=== PATIENT | female | born 1985 | race Caucasian/White ===

== ENCOUNTER 2024-11-19 10:59 | Outpatient (CLI) | payer BC, SELFPAY ==
--- NOTE | 2024-11-19 11:15 | CRLHL7_ITS ---
For Patients: As a result of the Century Cures Act, medical imaging exams and procedure reports are released immediately into your electronic medical record. You may view this report before your referring provider. If you have questions, please contact your health care provider. INDICATION: Menorrhagia TECHNIQUE: Ultrasound pelvis transabdominal and transvaginal for better assessment or to better visualize the endometrium. Real-time sonographic images with spectral and color Doppler imaging of the ovaries were obtained. COMPARISON: None. FINDINGS: Uterus: 10.1 x 5.9 x 6.6 cm. There is a 2.2 x 2.4 x 2.6 centimeter submucosal fibroid, predominantly intracavitary. Endometrium: Transvaginal imaging was performed to better evaluate the endometrium. Endometrial thickness could not be evaluated due to intracavitary fibroid. Right ovary 3 x 2.1 x 3 centimeters. Left ovary 2.5 x 1.4 x 1.7 centimeters. No ovarian or adnexal masses. Normal arterial and venous blood flow is demonstrated in both ovaries. Cul-de-sac: No significant free fluid. IMPRESSION: There is a 2.2 x 2.4 x 2.6 centimeter submucosal fibroid, predominantly intracavitary (FIGO 1). Dictated by Gala Heaton MD @ 11/19/2024 4:32:05 PM (Electronically Signed)
== END 2024-11-19 11:00 | disposition home or self-care (01) ==
LOC: US 11:00
PROVIDERS: Visit Provider Obstetrics & Gynecology
DX: N92.0 Excessive and frequent menstruation with regular cycle (principal); D25.0 Submucous leiomyoma of uterus
CPT/HCPCS: 76830; 76856

== ENCOUNTER 2025-03-12 14:42 | Inpatient (IN) | payer BC, SELFPAY ==
[2025-03-12] VITALS (22 sets, daily range): BP systolic 107–147; BP diastolic 60–93; PULSE 67–98; RESP 12–16; TEMP 35.8–37.3; O2SAT 90–100; BMI 35.8
--- NOTE | 2025-03-12 07:51 | W.PM.H&PU ---
History & Physical Update History & Physical Update H&P Reviewed and patient assessed: No changes noted
[2025-03-12] MEDS: SODIUM CHLORIDE 0.9 % (FLUSH) 10 ML SYRINGE IVF ×2 (08:25→23:01)
[2025-03-12] MEDS: LACTATED RINGERS 1000 ML 1,000 ML 100 ML IV ×2 (08:25→12:37)
[2025-03-12 08:35] LABS: Hemoglobin* 11.7 gm/dL (12.0-16.0)
[2025-03-12 08:37] LABS: Ur HCG Qualitative* Negative (Negative)
--- NOTE | 2025-03-12 08:54 | W.PM.H&PU_ITS ---
History & Physical Update History & Physical Update H&P Reviewed and patient assessed: No changes noted H&P Updates: Ms. Wolfe is seen in pre-op prior to planned total laparoscopic hysterectomy, bilateral salpingectomy, diagnostic cystoscopy. No interval change to her health history or questions today. We again reviewed the risks, benefits and alternatives to the planned procedure. Explained that she is at increased risk of conversion to an open procedure given her 3 prior , and potentially for cystotomy if bladder flap is challenging to develop. Explained how her hospitalization/recovery could be different if MILAD is required. All questions answered. Written consent was re- signed. Post-procedure restrictions and expectations reviewed. Pre-op labs reviewed and are within normal limits (Cr pending). Ancef as perioperative antibiotics indicated.
[2025-03-12] MEDS: SCOPOLAMINE 1 MG/3 DAY PATCH 1 PATCH TRANSDERMA (08:55)
[2025-03-12] MEDS: ACETAMINOPHEN 500 MG TABLET 1000 MG PO (08:55)
[2025-03-12] MEDS: PHENAZOPYRIDINE HCL 200 MG TABLET PO (08:55)
[2025-03-12] MEDS: GABAPENTIN 600 MG TABLET PO (08:55)
[2025-03-12 08:56] LABS: Creatinine* 1.0 mg/dL (0.5-1.5); Est. Creatinine Clearance* 59.15; Estimated Glomerular Filt Rate 73 ml/min
[2025-03-12] MEDS: CEFAZOLIN 2 GM INJ IVP (09:12)
[2025-03-12] MEDS: BUPIVACAINE 0.25% 30 ML INJECTION (09:39)
--- NOTE | 2025-03-12 10:39 | SUR.OPER ---
RN notified family at 10:05 that we could not proceed with doing laparoscopic and that we had to open.
--- NOTE | 2025-03-12 11:00 | SUR.OPER ---
Hao STROUD requests a general surgeon at 10:15 to come to OR 4 to take a look at the adhesions of patients abdomen
--- NOTE | 2025-03-12 11:41 | P.ANES_ITS ---
Anesthesia Charges Start Date/Time Anesthesia Start Date: 03/12/25 Anesthesia Start Time: 08:59 Stop Date/Time Anesthesia Stop Date: 03/12/25 Anesthesia Stop Time: 13:45 Coding CPT Codes CPT Codes: ANESTH SURG LOWER ABDOMEN - 30274 ([id number]) P2 - PATIENT W/MILD SYST DISEASE, QK - EQUIPMENT WORKER 2-4 CNCRNT ANES PROC, QX - WEDDING COORDINATOR SVC W/ MD MED DIRECTION
--- NOTE | 2025-03-12 11:41 | W.PM.NB ---
Nerve Block Nerve Block Time Seen by Provider: 09:10 Date Seen: 03/12/25 Type of block requested by surgeon for post-operative analgesia: TAP Side: bilateral Time out performed: Yes Verification of patient name: Yes Verification of date of : Yes Site marking: site marked Name of person performing procedure: Mauro Continuous monitoring Was continuous monitoring of O2 sat, B/P, color television console monitor, recorded every 15 minutes?: Yes Procedure Checklist: sterile prep, needles and gloves Ultrasound guided. Images saved: Yes Medications given in 5ml increments after negative aspiration: Marcaine %: 0.25 mL: 30 Needle gauge: 20 and Exparel mL: 10 Patient tolerated procedure well: Yes Additional comments: Needle noted between internal oblique and transversus abdominus. Local spread visualized Block Charges Block Charge (with Pro Fee): TAP Bilateral Use of Ultrasound Machine for Block: Yes- US Guidance/pain block
--- NOTE | 2025-03-12 11:41 | W.ANESCHARGE ---
Anesthesia Charges Start Date/Time Anesthesia Start Date: 03/12/25 Anesthesia Start Time: 08:59 Stop Date/Time Anesthesia Stop Date: 03/12/25 Anesthesia Stop Time: 13:45 Coding CPT Codes CPT Codes: ANESTH SURG LOWER ABDOMEN - 34606 ([id number]) P2 - PATIENT W/MILD SYST DISEASE, QK - DENTAL SCHEDULING COORDINATOR 2-4 CNCRNT ANES PROC, QX - SENIOR MICROSTRATEGY DEVELOPER SVC W/ MD MED DIRECTION
--- NOTE | 2025-03-12 11:45 | PM.GSPRC ---
Operative Note Date of procedure: 03/12/25 Type of Procedure: 1. Intraoperative consultation for Lysis of adhesions. Indications: Intraoperative consultation Procedure Description: I was contacted by OBGYN surgeons regarding patient's adhesions to uterus. Patient was undergoing laparoscopic converted to open hysterectomy. When I entered the room, the Pfannenstiel incision was already made and abdomen was entered. I was able to visualize the uterus and on the left anterior side of the abdomen omentum was adherent to the uterus. When I scrubbed into the case, omental adhesions were lysed with cautery. Hemostasis was achieved with cautery and with Vicryl ties. No small intestine was seen adherent to the uterus. The left broad ligament was visualized and omentum adherent to the broad ligament and the left side of the uterus and cervix was mobilized with cautery. Anteriorly peritoneal adhesions and omental adhesions were seen to the anterior uterus. Those were also lysed with cautery. Posteriorly the uterus and cervix were free and the rectum was packed away from the field of dissection. This dissection allowed further mobilization of the uterus and to be able to proceed with hysterectomy. At this time I helped with placement of Caleb retractor, and OBGYN surgeons continued with the case. Findings: Omental adhesions to the left and anterior uterus and cervix. Anesthesia: GETA Surgeon: Annette Betancourt MD Estimated blood loss (mL): 2 Condition: stable Disposition: no change
--- NOTE | 2025-03-12 12:21 | SUR.OPER ---
fntkvk=191 g
--- NOTE | 2025-03-12 12:40 | SUR.OPER ---
RN updated family at 12:39 about patients procedure. RN told family surgeon will be out to talk to them after surgery.
--- NOTE | 2025-03-12 13:44 | P.ANES_ITS ---
Anesthesia Charges Start Date/Time Anesthesia Start Date: 03/12/25 Anesthesia Start Time: 08:59 Stop Date/Time Anesthesia Stop Date: 03/12/25 Anesthesia Stop Time: 13:45 Coding CPT Codes CPT Codes: ANESTH SURG LOWER ABDOMEN - 95912 ([id number]) P2 - PATIENT W/MILD SYST DISEASE, QK - BRANCH OPERATIONS MANAGER 2-4 CNCRNT ANES PROC, QX - OPTIONS TRADER SVC W/ MD MED DIRECTION
--- NOTE | 2025-03-12 13:44 | W.ANESCHARGE ---
Anesthesia Charges Start Date/Time Anesthesia Start Date: 03/12/25 Anesthesia Start Time: 08:59 Stop Date/Time Anesthesia Stop Date: 03/12/25 Anesthesia Stop Time: 13:45 Coding CPT Codes CPT Codes: ANESTH SURG LOWER ABDOMEN - 27985 ([id number]) P2 - PATIENT W/MILD SYST DISEASE, QK - SECURITY INTERN 2-4 CNCRNT ANES PROC, QX - SODA FOUNTAIN MANAGER SVC W/ MD MED DIRECTION
--- NOTE | 2025-03-12 14:10 | P.GYNPRC_ITS ---
Procedure Note Time Seen by Provider: 13:30 Date of procedure: 03/12/25 Will [facility] bill your pro fee for this procedure?: Yes Pre-op diagnosis: Abnormal uterine bleeding Fibroid uterus History of delivery x3 Procedure: Diagnostic laparoscopy Total abdominal hysterectomy Bilateral salpingectomy Extensive lysis of adhesions Cystotomy repair Cystoscopy Anesthesia: GETA Complications: 1 cm cystotomy, repaired Surgeon: Stacy Bui MD Brazing Machine Operator: Shivani Camargo Estimated blood loss (mL): 300 IV fluids (mL): 1,900 Urine Output (mL): 350 Pathology: specimen obtained, sent to pathology Condition: stable Disposition: floor Findings: Unremarkable external genital exam and speculum exam Extensive intra-abdominal adhesions of the omentum to anterior abdominal wall from just below the umbilicus down the mid and left anterior abdominal wall, requiring conversion to abdominal procedure Unremarkable upper abdominal survey Slightly enlarged uterus, normal bilateral fallopian tubes and ovaries Omental adhesion to the left anterior uterus and bladder flap Adhesive disease across the vesicouterine reflection Procedure Description: Patient was taken to the operating room with IV running. She received cefazolin in preoperative prophylaxis. She was positioned in dorsal lithotomy position with her legs fully supported in Yellofin stirrups. General anesthesia was administered. She was prepped and draped in the usual sterile fashion. Albright catheter was inserted. Pelvic exam under anesthesia was performed for the above-noted findings. Speculum was inserted. Cervix visualized and grasped along its anterior lip with a single-tooth tenaculum. Cervix was dilated with Hegar dilators to accommodate the VCare uterine manipulator. A medium size colpotomizer cup was selected. The tip of the uterine manipulator was inserted through the cervix into the uterine cavity and the balloon was inflated. The speculum was removed. The colpotomy cup was advanced, surrounding the cervix, and the proximal occlud er was moved up along the shaft of the VCare and fixed in place. Albright catheter was placed. Patient's legs were then placed in neutral position. Attention was turned to patient's abdomen. Infraumbilical area was infiltrated with a small amount of Marcaine. A 12 mm infraumbilical incision was made with a scalpel and carried down to the underlying layer of fascia with the hemostat. The fascia was grasped with Rosalio clamps and elevated, fascial incision made with scalpel. A curved hemostat was utilized to enter peritoneum and gently stretch fascial incision. A gloved finger was introduced into the peritoneal cavity, where slightly inferior to site of entry there was noted be dense omental adhesions to the anterior abdominal wall. Bonds trocar was introduced to the peritoneal cavity, balloon inflated. 5mm camera inserted and high flow initiated. Pneumoperitoneum was achieved, where careful attention was paid below site of entry - no injury or bleeding noted. Upper abdominal survey was completed, revealing normal anatomy. Patient was put into Trendelenburg, where extensive omental adhesions was noted down the entirety of the anterior abdominal wall and toward the left pelvis. VCare was utilized to antevert the uterus, were despite this we could not visualize the pelvic structures. Decision was made to terminate the attempt at total laparoscopic surgery, due to extensive adhesive disease. Pneumoperitoneum was taken down, trocar removed. The fascia was grasped with Rosalio clamps and elevated, closed with a [id number] with 0 vicryl. Subcutaneous tissue was made hemostatic with electrocautery. Skin was closed in a running fashion with 3-0 Monocryl. A Pfannenstiel incision was made 2cm above the pubic symphysis with a scalpel. Her former C/S scar was not utilized as it was noted to overlie the pubic symphysis itself. Dissection was carried through to the underlying layer of fascia with the scalpel. The subcutaneous fat was dissected off the underlying fascia with Bovie and blunt dissection. The fascia was nicked in the midline with a scalpel, and this incision was extended laterally with scissors. Adhesive disease was noted throughout this dissection, and a diastasis recti was noted. The rectus muscles were in the midline. Peritoneum was identified and entered bluntly, where a gloved finger was utilized to enter a space to the right of midline to help establish normal peritoneum from the area with dense adhesions to the omentum. We carefully worked to extend peritoneal entry with blunt dissection and electrocautery. Bovie was used to widen this opening laterally. The patient was placed into Trendelenburg, the bowel was gently packed into the upper abdomen. Internal digital exam confirmed dense adhesions to the anterior abdominal wall down to the left aspect of the uterus and in the region of the bladder. General surgery consultation was requested. Lysis of adhesions continued to free the omentum from the anterior abdominal wall, making care to ensure the bowel was well away from area of dissection, maintain hemostasis and restore normal anatomy. A majority of the omental adhesion was taken down sharply, but where areas of vasculature were noted the omentum was doubly clamped, cut and suture ligated. We were successful at reducing lysis of adhesions to a point that the uterus, bilateral fallopian tubes and ovaries were able to visualized. Stonewall clamps were applied to the bilateral uterine cornua and traction was applied. The bladder flap was noted be adhesed across, with omental adhesions again noted to the left/anterior aspect of the uterus and bladder peritoneum. The posterior aspect of the uterus and cul-de-sac was noted to be free of adhesions, sigmoid colon was well away from area of planned dissection. Attention was first turned to the right fallopian tube and ovary, where the ureter could not be visualized transperitoneally. The fallopian tube was grasped, elevated and sequentially ligated and transected from the mesosalpinx using the Ligasure cautery device. We proceeded from the fimbriated end, lateral to medial, and the tube was amputated at the right uterine cornua. Attention was turned to the left adnexa, where again ureter could not be visualized transperitoneally. Salpingectomy was performed in the same fashion, both fallopian tubes were removed for pathologic evaluation. The right round ligament was grasped and transected, tagged with 0 vicryl suture. The retroperitoneum was entered, where a window was made to secure the right uteroovarian ligament making care to stay well away from the anticipated site of the right ureter. The uteroovarian ligament was doubly clamped, cut and ligated x2. The anterior leaf of the broad ligament was extended to create the bladder flap, where filmy adhesive disease was noted laterally. More dense adhesion was noted as we approached the midline, where care was made to sharply take down the bladder reflection while avoiding the bladder itself. Dr. Betancourt of General Surgery arrived at this time. She completed an assessment and agreed with our impression regarding omental adhesions to the anterior abdominal wall, bladder peritoneum and anterior/left uterus. She carefully completed lysis of adhesions to free the uterus and bladder peritoneum from the omentum, using a combination of sharp dissection and electrocautery. We mutually agreed after her dissection that samaritan of normal anatomy was accomplished sufficiently to proceed with Caleb retractor placement and continued total abdominal hysterectomy. The left round ligament was doubly clamped, cut and suture ligated. A window was made in the left broad ligament to isolate the uteroovarian ligament, making care to stay medial and avoid the anticipated site of the ureter. The uteroovarian ligament was doubly clamped, cut and suture ligated x2. Bleeding was noted from the peritoneum just distal to the left ovary, where the lumen of a small vein in the mesoovarian tissue could be identified. This was clamped and ligated with a 2-0 vicryl free tie. Excellent hemostasis was noted, integrity of the ovarian vessels was noted. The anterior leaf of the broad ligament was extended to meet the right sided bladder flap in the midline sharply. The bladder was noted to be more densely adhered on the left side, where care was made to carefully reduce adhesions with a combination of sharp and blunt dissection. Planned site for ligation of the uterine vessels was noted to be clear bilaterally. The right cardinal ligament was doubly clamped with curved Sondra clamp and cut. Pedicle was suture ligated with a 0-vicryl Sondra stitch. Redundant vasculature was noted on the right, where the tissues just distal the initial suture ligation was noted to be bleeding. This was grasped again with a Sondra forceps, where a Sondra stitich with 0 vicryl was applied again to this more inferior and lateral bleeding tissue. Excellent hemostasis was then noted. The same was performed on the left, where again excellent hemostasis was noted. The existing Vcare manipulator was utilized to delineate the anterior vaginal fornix digitally, where further reduction of the bladder flap was required due to cervical elongation. Oozing was noted through this dissection, where electrocautery was utilized sparingly to ensure hemostasis. Suction was being utilized to allow for visualization of the site of dissection, where while we were working there seemed to be spontaneous spill of a small volume of urine likely secondary to trauma from blunt dissection or from the suction. Regardless, an Allis was applied on the bladder reflection at site of suspected cystotomy, which was examined and noted to be about 5mm in size. We temporarily continued dissection to fully develop the vesicouterine reflection to 1cm below the planned site of colpotomy in order to ensure its safety for future colpotomy and cuff closure. The cystotomy was then reexamined, where the mucosal defect was about 5mm initially but had extended to 1cm in size due to traction applied throughout the above dissection. The bladder mucosa was closed in a continuous fashion with 3-0 vicryl. The overlying muscularis and serosa was then imbricated together with several interrupted sutures of 3-0 vicryl in a two layer closure. No further leaking of urine could be seen. Cervical elongation was apparent on digital exam of the cervix, however the planned of colpotomy was again examined and noted to be free. The Vcare manipulator was removed. A straight Sondra clamp was applied parallel to the cervix, making care to ensure the anterior bladder flap was well below and posterior cul-de-sac was free. A 15 blade on a long handled scalpel was utilized to transect the pedicle, secured with 0 vicryl Sondra stitch. This was performed twice on the left and twice on the right in the same fashion. Digital exam confirmed the cervix to be free to site of planned colpotomy. A curved Sondra was applied just distal to the cervix on both sides, meeting in the midline. Rodriguez scissors were utilized to perform colpotomy, where cervix and uterus were removed from the field to be sent for pathologic evaluation. A Sondra stitch was applied with 0 vicryl at both corners of the vaginal cuff, tied and tagged. The intervening vaginal cuff was closed in a running, locking fashion with 0 vicryl between the two corner stitches. Excellent hemostasis was noted throughout. Attention was then turned to the perineum. Albright catheter was removed. Diagnostic cystoscopy was performed, where the site of cystotomy repair was noted to be just above the midline trigone of the bladder toward patient left. The bladder dome was noted to be intact with air bubbles. No suture material was visualized from the hysterectomy itself, aside from known suture material from the cystotomy repair. The bilateral ureteral orifices were noted to be clear of the cystotomy repair, with bilateral spontaneous and robust efflus of urine noted. Intra-abdominal assessment ensured no apparent bladder leak. Cystoscope was removed, Albright catheter reinserted. Out of an abundance of precaution, we then did backfill the bladder with 200cc of s terile milk where again integrity of the cystotomy repair was noted. Final hemostasis check across the pelvis was completed. Oozing was noted between the left vaginal cuff and uterine vessels, grasped with Sondra and secured with a 0 vicryl sondra stitich. Excellent hemoasis was noted throughout the entirety of the surgical field. Jeri was applied across the vaginal cuff. Bowel pack and Caleb retractor were removed. The rectus fascia was grasped and elevated, underlying rectus muscles made hemostatic with electrocautery as needed. A single area on the left rectus abdominis did not respond to cautery, made hemostatic with a 2-0 vicryl figure of eight stitch. The fascia was closed with looped 0 PDS in the usual fashion. The subcutaneous tissue was irrigated with warm saline. Subcutaneous tissue was closed in 2 layers with 2-0 vicryl. Skin was closed with 3-0 Monocryl. Surgical glue was applied over both incisions. Surgical dressings applied. Procedure was deemed complete. Patient tolerated procedure well. She was taken to recovery area in stable condition. Surgical debrief completed with the above details. Path was cervix, uterus, bilateral fallopian tubes.
[2025-03-12] MEDS: ONDANSETRON 2 MG/ML inj 4 MG IVP (14:52)
--- NOTE | 2025-03-12 18:58 | PC.NURSE ---
End of Shift ([id number]): Patient pleasant and cooperative, A&O. VSS, afebrile. Patient reports pain to the op-site this shift, managed with PRN medication, see MAR. Ice applied to op-site throughout the shift. Patient reported feeling nauseas well after coming to the floor, managed with PRN medication, see MAR. Dressing to abdomen C/D/I. Patient appears to be resting comfortably in bed, call light within reach.
--- NOTE | 2025-03-12 22:10 | PC.NURSE ---
Shift note: Patient alert and oriented. Ambulated with SBA in the hallway. Pain has been rated at 5 but required no medication. Dressing intact, clean and dry. Albright in place draining deep maricrzu colored urine. HR is elevated recorded between 100 and 114. Other v/s stable. Patient has been in bed throughout the shift.
--- NOTE | 2025-03-12 22:17 | PC.NURSE ---
Shift note: Patient alert and oriented. Ambulated with SBA in the hallway. Pain has been rated at 5 but required no medication. Dressing intact, clean and dry. Albright in place draining deep maricruz colored urine. Tolerated regular diet well. Reported nausea when attempted to walk for the first time since surgery but no vomiting. Vitally stable.
[2025-03-13 02:40] VITALS: BP 124/76; PULSE 88; RESP 18; TEMP 36.8; O2SAT 95
--- NOTE | 2025-03-13 06:50 | PC.NURSE ---
Pt alert and oriented x3. Afebrile. Pt reports 3-4/10 pain in abdomen, pain medications offered pt declined stating it feels fine. Pt?s abdominal?dressing is?CDI. Pt is up ad nely walking halls, voiding and tolerating a regular diet. Pt?s Albright is patent and draining. ?
[2025-03-13 06:56] LABS: Hemoglobin* 9.8 gm/dL (12.0-16.0)
[2025-03-13 07:00] VITALS: BP 117/65; PULSE 79; RESP 16; TEMP 36.8; O2SAT 97
[2025-03-13 07:14] LABS: Creatinine* 0.9 mg/dL (0.5-1.5); Est. Creatinine Clearance* 65.72; Estimated Glomerular Filt Rate 83 ml/min
--- NOTE | 2025-03-13 07:29 | PM.GYNPNPO ---
PATIENT CARE SECRETARY - A/P Assessment and plan (1) Intraoperative bladder injury: Status: Acute (2) S/P total abdominal hysterectomy: Status: Acute (3) Fibroid uterus: Status: Acute Plan Dee is a 39-year-old P3 (C/S x3) seen on postop day 1 from a diagnostic laparoscopy converted into total abdominal hysterectomy, bilateral salpingectomy, lysis of adhesions, cystotomy repair and diagnostic cystoscopy. Her intraoperative course was complicated by significant adhesive disease, requiring lysis of adhesion by myself and Dr. Betancourt. She additionally had a small cystotomy, recognized and repaired with excellent integrity noted on leak test. She is progressing through postoperative day 1 milestones appropriately. Pain is well controlled, has been up to ambulate successfully. She did feel slightly dizzy when doing so yesterday, recommend we trialed this again today. Voiding via Albright, plan to keep this in place for 7 days. Plan to have a voiding cystogram on 03/20, coordination ongoing now with radiology. She is not yet passing flatus, no bowel movement. Minimal vaginal bleeding. A.m. labs reviewed and are appropriate with a hemoglobin of 9.8 (from 11.7) and creatinine of 0.9 (from 1.0). Plan to continue to press through postoperative milestones today. Goals include: Ambulation, return of bowel function. Anticipate dismissal to home tomorrow, pending return of bowel function and progression through postoperative milestones. We again reviewed her intraoperative course, where patient has no questions or concerns. Postoperative Procedures: Procedures Operation Date: 03/12/25 09:00 Actual Procedure Side Surgeon p Diagnostic Laparoscopy, Total Abdominal Hysterectomy, Bilateral Salpingectomy, Diagnostic Cystoscopy, Cystotomy Repair, Lysis of Adhesions Keena Bui MD s Lysis of Adhesions Not Applicable Annette Betancourt MD Time Spent With Patient Time: Total time spent is greater than 50% in coordination of care (as documented) at patient's floor/unit and/or counseling patient: Time with patient: less than 15 minutes PATIENT CARE SECRETARY- PN:Subj Post-Op Subjective Time Seen by Provider: 07:29 Date Seen: 03/13/25 Post Operative Details: Post-operative day number 1: status post diagnostic lap, MILAD, bilateral salpingectomy, lysis of adhesions, cystotomy repair, diagnostic cystoscopy Dee is a 39-year-old P3 seen on postop day 1 from the above-stated procedure. Her surgery was complicated by a small cystotomy, repaired. Her postoperative course has been unremarkable to present. Overnight, patient notes her pain was well controlled. She is utilizing a regimen of NSAIDs, Tylenol and oxycodone (none overnight). Last received IV narcotic push yesterday around 1430. She is tolerating p.o. intake in small volumes, denies nausea vomiting. Appetite is lower than baseline. Voiding via Albright catheter, plan to remain in situ for 7 days with voiding cystogram prior to removal. Spoke to radiology with plan to complete this study on 03/20/2025. UOP is adequate, 156cc/hr over last 8 hours. Denies bladder spasms, is tolerating the Albright well. She is not yet passing flatus, no bowel movement. Has been up to ambulate, yesterday evening did feel slightly dizzy when doing so. Denies any dizziness or lightheadedness, chest pain or dyspnea. PATIENT CARE SECRETARY-PN: Obj Exam Physical Exam: Vital signs: Temp Pulse Resp BP Pulse Ox O2 Del Method O2 Flow Rate 98.3 F 88 18 124/76 95 Room Air 6 03/13/25 02:40 03/13/25 02:40 03/13/25 02:40 03/13/25 02:40 03/13/25 02:40 03/13/25 02:40 03/12/25 13:45 Narrative: Vital signs reviewed and are within normal limits. General: Alert and oriented, no acute distress Psych: Appropriate mood and affect Abdomen: Soft, mild gaseous distension noted - unchanged from p.m. rounding exam yesterday. Tenderness to palpation in the lower quadrants, consistent with postoperative state. No rebound or guarding. Incision is covered with surgical dressing, clean/dry. Pelvic: Scant blood noted on pad. Albright catheter in place. Extremities: SCDs in place. No calf erythema or tenderness. Urinary Catheter Management: 2-way Urethral: Cath placed during this visit: no PATIENT CARE SECRETARY - PN: Obj Data Labs Labs: Laboratory Results - last 24 hr 03/12/25 03/12/25 03/13/25 08:20 08:26 06:38 Hgb 11.7 L 9.8 L Creatinine 1.0 0.9 Estimated Creat Clear 59.15 65.72 Estimated GFR 73 83 Urine HCG, Qual Negative Blood Type O Positive Antibody Screen NEGATIVE
[2025-03-13] MEDS: IBUPROFEN 600 MG TABLET PO ×3 (08:03→19:49)
[2025-03-13] MEDS: MULTIVITAMIN/MINERALS 1 TABLET 1 TAB PO (09:18)
[2025-03-13 11:00] VITALS: BP 123/73; PULSE 84; RESP 16; TEMP 36.7; O2SAT 98
--- NOTE | 2025-03-13 14:53 | PC.NURSE ---
End of shift [id number]: Pt AxOx4, pleasant, cooperative with cares. Pt reports pain to the abdomen, check writer salesperson utilized active ice, PRN/scheduled medication, and repositioning. Pt reported relief. Abdomen dressing remains CDI. Pt denies passing flatus. Pt up in the hallways walking during the shift, tolerated well. Tolerating regular diet/fluids well. Albright remains patent and draining. Pt in bed resting watching television with call light in reach.
[2025-03-13 15:00] VITALS: BP 104/58; PULSE 83; RESP 16; TEMP 36.7; O2SAT 97
[2025-03-13 19:00] VITALS: BP 116/73; PULSE 85; RESP 18; TEMP 36.7; O2SAT 98
[2025-03-13 23:15] VITALS: BP 122/72; PULSE 86; RESP 16; TEMP 36.7; O2SAT 97
--- NOTE | 2025-03-14 02:55 | PC.NURSE ---
End of Shift: Patient pleasant and cooperative. Afebrile. Dressing to abdomen C/D/I. Rating pain up to 6/10 and PRN Oxycodone given x1. Up walking in hallway. Tolerating regular diet with no nausea. Albright patent.
[2025-03-14 03:16] VITALS: BP 122/66; PULSE 78; RESP 16; TEMP 36.6; O2SAT 98
--- NOTE | 2025-03-14 06:54 | PC.NURSE ---
Pt alert and oriented x3. Afebrile. Pt reports tolerating 0-3/10 pain in abdomen, managed with Ice pack. Pt?s abdominal?dressing is?CDI. Pt is up ad nely walking halls, voiding and tolerating a regular diet. Pt reports passing gas overnight. Pt?s Albright is patent and draining. ?
[2025-03-14 07:00] VITALS: BP 121/69; PULSE 91; RESP 16; TEMP 37.1; O2SAT 95
[2025-03-14] MEDS: IBUPROFEN 600 MG TABLET PO (08:25)
[2025-03-14] MEDS: MULTIVITAMIN/MINERALS 1 TABLET 1 TAB PO (08:25)
[2025-03-14] MEDS: FERROUS SULFATE 325 MG TABLET PO (08:25)
--- NOTE | 2025-03-14 09:25 | P.DS_ITS ---
DS: Providers Provider Time Seen by Provider: 08:45 Date Seen: 03/14/25 Date of admission: 03/12/25 14:42 Primary care physician: Not a Local Provider Admitting Clinician: Keena Bui MD Attending Physician on discharge: Shivani Camargo Date of Discharge: 03/14/25 DS: Diagnosis Discharge Diagnosis (1) S/P total abdominal hysterectomy: Status: Acute Problem details: w/ B salpingectomy, incidental cystotomy HOSTESS PARTY SALES REPRESENTATIVE-Discharge Summary Hospital Course Hospital Course Narrative: Patient is a 39 year old admitted on 03/12/2025 for scheduled total laparoscopic hysterectomy with bilateral salpingectomy that was converted to a total abdomi nal hysterectomy/lysis of adhesions/bilateral salpingectomy/cystotomy repair and diagnostic cystoscopy. Indication for surgery: Uterine fibroids and menorrhagia. Intraoperative findings were notable for large amount of omental adhesions to the abdominal wall anteriorly, right lower quadrant, midline and left lower quadrant, normal appearing uterus, fallopian tubes and ovaries, normal appendix. Her surgery was complicated by an incidental cystotomy that was repaired. Planning to have a Guzman catheter in place for 7 days postoperatively Vitals have been stable. She has remained afebrile. Today, on postoperative day 2, she reports the pain is well controlled. She has been able to ambulate Without difficulty. She is tolerating regular diet. She is passing flatus. Planning to have a cystogram on 03/20/2025 to verify that the bladder is well-healed prior to removing the Guzman catheter. Time Spent with Patient Time attestation: Total time spent providing and/or coordinating discharge services: HOSTESS PARTY SALES REPRESENTATIVE - Exam Physical Exam: Vital signs: Temp Pulse Resp BP Pulse Ox O2 Del Method O2 Flow Rate 98.7 F 91 16 121/69 95 Room Air 6 03/14/25 07:00 03/14/25 07:00 03/14/25 07:00 03/14/25 07:00 03/14/25 07:00 03/14/25 07:00 03/12/25 13:45 Narrative: Subjective: Dee is a 39-year-old 3 para 3 who is postop day 2 from a total laparoscopic hysterectomy converted to total abdominal hysterectomy/lysis of adhesions/bilateral salpingectomy/cystotomy repair and diagnostic cystoscopy for symptomatic uterine fibroids with menorrhagia. She is doing well today. She states her pain is moderately well controlled. She is tolerating regular d iet. She denies nausea/vomiting. She has a Guzman catheter in place. Has had adequate urine output with clear yellow urine. She has been ambulating without difficulty. She is passing flatus. Objective: General: Pleasant, , well groomed woman in no acute distress. Vital signs: Per electronic medical record Heart: Regular rate and rhythm without gallop, rub or murmur. Chest: Clear to auscultation bilaterally. Abdomen: Soft, nontender, mildly distended. No CVA or flank tenderness. Incision: Dressing was removed and incision is clean, dry and intact with sutures and skin adhesive gel. Extremities: No pain or edema Assessment: 39-year-old postoperative day# 2 from a total abdominal hysterectomy/lysis of adhesions/bilateral salpingectomy/cystotomy repair and diagnostic cystoscopy. Plan: 1. Continue routine postop care. 2. Planning discharge home today. HOSTESS PARTY SALES REPRESENTATIVE - DS: Data Procedures Procedures: Procedures Operation Date: 03/12/25 09:00 Actual Procedure Side Surgeon p Diagnostic Laparoscopy, Total Abdominal Hysterectomy, Bilateral Salpingectomy, Diagnostic Cystoscopy, Cystotomy Repair, Lysis of Adhesions Keena Bui MD s Lysis of Adhesions Not Applicable Annette Betancourt MD Discharge Plan Discharge Disposition: Home, Self-Care Date of Admission: 03/12/25 14:42 Attending Provider on Discharge: Shivani Camargo Primary Care Provider: Provider,Not a Local Condition: Stable Anticipated Discharge Date/Time: 03/14/25 11:30 Discharge Medications: New oxycodone 5 mg Tablet 5 mg PO Q6H PRN (Reason: Moderate Pain) Qty: 15 0RF ferrous sulfate 325 mg (65 mg iron) Tablet 325 mg PO Q48H Qty: 50 0RF docusate sodium 100 mg Capsule 100 mg PO BID PRN (Reason: Constipation) Qty: 100 0RF ibuprofen 600 mg Tablet 600 mg PO Q6H Qty: 30 0RF Continued multivitamin Tablet 1 tab PO QAM cholecalciferol (vitamin D3) 25 mcg (1,000 unit) capsule 25 mcg PO QDAY Discharge Orders: Discharge Order (Routine); Ordered 03/14/25 Ordered By: Shivani Camargo Patient Education: Scopolamine (Absorbed through the skin) (Transderm Scop), General Anesthesia (DC), Hysterectomy (DC) Additional Instructions: GUZMAN CATHETER: Maintain guzman catheter for 1 week. You will need a voiding cystogram prior to removal, scheduled 03/20/25 with Radiology. Restrictions: Lifting: Please do not lift more than 20lbs for 6 weeks Sexual restriction: Pelvic rest for 6 weeks (no intercourse/tampons) Do not submerge your incision in water for 2 weeks. No high-impact or core exercise for 6 weeks. No driving if taking oxycodone during the day: 1-2 weeks No restrictions for: Walking Climbing stairs Being a passenger in a motor vehicle. Pain control: Over the counter Motrin 600 mg by mouth every six hours on a full stomach for pain as needed Over the counter Acetaminophen 1000 mg by mouth every six hours on a full stomach for pain as needed Oxycodone 5mg every 4 hours as needed for breakthrough pain Please call with: - Increasing or severe abdominal pain - Fevers/chills - Inability to tolerate solid/liquids by mouth, recurrent nausea/vomiting - Incision redness/drainage - Signs or symptoms of a blood clot - calf pain, redness, swelling, chest pain or shortness of breath Activity Level: Other Activity Detail: No lifting more than 20 lbs for 6 weeks Discharge Diet: Regular Follow Up Appointments: Keena Bui MD [Staff Physician, TOPOGRAPHICAL ENGINEER] Provider,Not a Local [Primary Care Provider, Family Practice] Forms: MyHealth Info Instructions
[2025-03-14 11:00] VITALS: BP 107/58; PULSE 79; RESP 16; TEMP 36.7; O2SAT 93
--- NOTE | 2025-03-14 12:22 | PC.NURSE ---
Pt discharged @ 1207, accompanied by family member. Back to home. Pain managed. No nausea present. Pt in good condition. Education given on restrictions and miller catheter. Pt reported understanding. Final room check complete. Discharge/belonging forms signed.
== END 2025-03-14 12:07 | disposition home or self-care (01) | DRG 519 ==
LOC: OR 14:45 → MEDSURG 14:45
PROVIDERS: Surgery; Admitting Provider Obstetrics & Gynecology; Visit Provider Obstetrics & Gynecology
PROC: 0UT94ZZ Resection of Uterus, Percutaneous Endoscopic Approach (ICD-10-PCS; principal; 2025-03-12 09:00)
PROC: 0DNU0ZZ Release Omentum, Open Approach (ICD-10-PCS; CPT 49320; 2025-03-12 09:00)
DX: D25.1 Intramural leiomyoma of uterus (principal); D25.0 Submucous leiomyoma of uterus; N92.0 Excessive and frequent menstruation with regular cycle; N93.8 Other specified abnormal uterine and vaginal bleeding; K66.0 Peritoneal adhesions (postprocedural) (postinfection); Z53.31 Laparoscopic surgical procedure converted to open procedure; N99.71 Accidental puncture and laceration of a genitourinary system organ or structure during a genitourinary system procedure; G89.18 Other acute postprocedural pain; R42 Dizziness and giddiness
CPT/HCPCS: 00840; 36415; 64488; 76942; 81025; 82565; 85018; 86850; 86900; 86901; 88307; A4314; A9153; A9270; J0665; J0666; J0690; J1100; J1171; J1630; J1885; J2371; J2405; J2710; J3010; J3475; J3490; J7120

== ENCOUNTER 2025-03-20 09:57 | Outpatient (CLI) | payer BC, SELFPAY ==
--- NOTE | 2025-03-20 10:15 | CRLHL7_ITS ---
For Patients: As a result of the Century Cures Act, medical imaging exams and procedure reports are released immediately into your electronic medical record. You may view this report before your referring provider. If you have questions, please contact your health care provider. Indication: Hysterectomy 1 week ago, evaluate for bladder leak Technique: Routine fluoroscopic cystogram performed. 300 cc of Cysto-Conray administered into the bladder using gravity drainage through indwelling catheter. IMPRESSION: Normal filling of the bladder without extravasation. No wall irregularity. No filling defect. Normal exam. Dictated by Jass Saleh MD @ 03/20/2025 12:38:27 PM (Electronically Signed)
--- NOTE | 2025-03-20 11:33 | PC.NURSE ---
Albright Cath removed intact after imaging. Verbal order received from Dr Bui.
== END 2025-03-20 09:58 | disposition home or self-care (01) ==
LOC: RAD 09:59
PROVIDERS: Visit Provider Obstetrics & Gynecology
DX: N99.81 Other intraoperative complications of genitourinary system (principal); Z90.710 Acquired absence of both cervix and uterus
CPT/HCPCS: 74430

== ENCOUNTER 2025-03-27 12:08 | Outpatient (CLI) | payer BC, SELFPAY | END 2025-03-27 12:09 | disposition home or self-care (01) | LOC: NFLDREF 12:11 | PROVIDERS: Visit Provider Obstetrics & Gynecology | DX: R39.15 Urgency of urination (principal) | CPT/HCPCS: 87086 ==

== ENCOUNTER 2025-04-25 11:06 | Outpatient (CLI) | payer BC, SELFPAY | END 2025-04-25 11:07 | disposition home or self-care (01) | LOC: NFLDREF 11:07 | PROVIDERS: Visit Provider Obstetrics & Gynecology | DX: N99.81 Other intraoperative complications of genitourinary system (principal); D62 Acute posthemorrhagic anemia; Z90.710 Acquired absence of both cervix and uterus | CPT/HCPCS: 82565 ==